=== PATIENT | male | born 1995 | race American Indian/Alaskan Native ===

== ENCOUNTER 2020-11-21 14:52 | Emergency (ER) | payer SELFPAY ==
[2020-11-21] MEDS ORDERED: DIPHtheria,PERTUSSIS(ACELL),TETANUS VACCINE/PF 0.5 ML VIAL IM ONE (15:08)
[2020-11-21 15:10] VITALS: BP 116/49
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
[2020-11-21] MEDS ORDERED: ACETAMINOPHEN 325 MG TAB PO ONE (17:07)
[2020-11-21] MEDS ORDERED: IBUPROFEN 800 MG TAB PO ONE (17:07)
[2020-11-21 17:55] LABS: Hematocrit 44.4 % (35.5-45.6); Hemoglobin 14.7 gm/dl (11.8-15.2); Mean Corpuscular HGB Conc 33 % (32-34); Mean Corpuscular Volume 93 fl (84-94); Platelet Count 258 K/mm3 (140-440); Red Blood Count 4.75 M/mm3 (3.65-5.03); Red Cell Distribution Width 14.4 % (13.2-15.2)
[2020-11-21 18:21] LABS: BUN/Creatinine Ratio 13; Blood Urea Nitrogen 13 mg/dL (9-20); Calcium 9.1 mg/dL (8.4-10.2); Hemolysis Index 7
[2020-11-21] MEDS ORDERED: SODIUM CHLORIDE 0.9% 1000 ML 1,000 ML IV ONE ×2 (18:41)
== END 2020-11-21 19:15 | disposition left against medical advice (07) ==
LOC: ED 14:52
DX: S89.92XA Unspecified injury of left lower leg, initial encounter (principal); R74.8 Abnormal levels of other serum enzymes; Z79.899 Other long term (current) drug therapy; Y08.89XA Assault by other specified means, initial encounter; Y93.89 Activity, other specified; Y92.89 Other specified places as the place of occurrence of the external cause; Y99.8 Other external cause status
CPT/HCPCS: 36415; 80048; 82550; 85027; 90471; 90715; 99283

== ENCOUNTER 2021-11-12 10:35 | Emergency (ER) | payer SELFPAY ==
[2021-11-12 11:08] VITALS: BP 109/41
[2021-11-12] MEDS ORDERED: TETANUS,DIPH,PERTUSS(ACELL) VACCINE 0.5 ML SYRINGE IM ONE (12:06)
--- NOTE | 2021-11-12 12:06 | Emergency Department Report ---
ED Extremity Problem HPI - General Chief complaint: Laceration/Recheck/Suture Stated complaint: LAC ON FINGER Time Seen by Provider: 11/12/21 11:50 Source: patient Mode of arrival: Ambulatory Limitations: No Limitations - History of Present Illness Initial comments: 26-year-old male presents to the ER today requesting a tetanus shot. Patient reports that he accidentally injured his second and third fingers of his left hand around October 13. He states that he was at work. He lifted a trash bag up in the air and accidentally got stuck by a piece of metal. He reports that he suffered a laceration to both the fingers, but he did not seek medical a ttention at the time. He states that he noticed that he has been having some stiffness to the fingers especially with flexion and extension. He states that his grandma told him that he may need a tetanus shot and he is he is not up-to-date on his tetanus. He reports no swelling, erythema, bruising, or any neuro symptoms. MD Complaint: other (Hand injury in Sep 2021; requesting tetanus injection) -: week(s) - Related Data Previous Rx's Medication Instructions Recorded Last Taken Type Naproxen 500 mg PO BID PRN #14 tablet 11/21/20 Unknown Rx Allergies Allergy/AdvReac Type Severity Reaction Status Date / Time No Known Allergies Allergy Unverified 11/21/20 15:06 ED Review of Systems ROS: Stated complaint: LAC ON FINGER Other details as noted in HPI Comment: All other systems reviewed and negative Constitutional: denies: chills, fever Eyes: denies: eye pain, eye discharge, vision change ENT: denies: ear pain, throat pain Respiratory: denies: cough, shortness of breath, wheezing Cardiovascular: denies: chest pain, palpitations Gastrointestinal: denies: abdominal pain, nausea, diarrhea Genitourinary: denies: urgency, dysuria Musculoskeletal: arthralgia Skin: other (laceration ) Neurological: denies: headache, weakness, paresthesias Psychiatric: denies: anxiety, depression Hematological/Lymphatic: denies: easy bleeding, easy bruising ED Past Medical Hx - Social History Smoking Status: Never Smoker Substance Use Type: None - Medications Home Medications: Home Medications Medication Instructions Recorded Confirmed Last Taken Type Naproxen 500 mg PO BID PRN #14 tablet 11/21/20 Unknown Rx ED Physical Exam - General Limitations: No Limitations General appearance: alert, in no apparent distress - Head Head exam: Present: atraumatic, normocephalic, normal inspection - Eye Eye exam: Present: normal appearance, PERRL, EOMI Pupils: Present: normal accommodation - Neck Neck exam: Present: normal inspection, full ROM. Absent: meningismus - Respiratory Respiratory exam: Present: normal lung sounds bilaterally. Absent: respiratory distress, wheezes, rales, rhonchi - Cardiovascular Cardiovascular Exam: Present: regular rate, normal rhythm, normal heart sounds - GI/Abdominal GI/Abdominal exam: Present: soft. Absent: distended, tenderness, guarding, rebound - Expanded Upper Extremity Exam Left Hand Wrist exam: Present: other (no apparent scaring or injury to left index finger; there is no ttp; he has full rom of finger; no signs of infection; sensation intact; cap refill nl. ) Hand L/R Back: 1 - old healed lac noted; no signs of infection; no ttp; no swelling; he has full ROM finger. cap refill nl. sensation intact Vascular: Present: normal capillary refill, radial pulse (normal ). Absent: vascular compromise - Neurological Exam Neurological exam: Present: alert, oriented X3, CN II-XII intact - Psychiatric Psychiatric exam: Present: normal affect, normal mood - Skin Skin exam: Present: intact ED Course Vital Signs 11/12/21 11:06 Temperature 98.4 F Pulse Rate 60 Respiratory 16 Rate Blood Pressure 109/41 [Left] O2 Sat by Pulse 100 Oximetry Critical care attestation.: If time is entered above; I have spent that time in minutes in the direct care of this critically ill patient, excluding procedure time. ED Disposition Clinical Impression: Laceration of finger, Tetanus toxoid vaccination administered at current visit Disposition: HOME / SELF CARE / HOMELESS Is pt being admited?: No Does the pt Need Aspirin: No Condition: Stable Instructions: Diphtheria/Tetanus Toxoids; Pertussis Vaccine, DTP injection, Nonsutured Laceration Care Additional Instructions: I recommend that you follow-up with Ortho hand specialist for further evaluation if he continues to have stiffness in the finger, to rule out tendon injury. You can continue taking ibuprofen for pain. Your tetanus was updated today. Return to the ER if your symptoms changes or worsens in any way. Referrals: JAMIE SANDERS MD [Staff Physician] - 3-5 Days Time of Disposition: 12:16
== END 2021-11-12 13:14 | disposition home or self-care (01) ==
LOC: ED 10:35
DX: S61.211D Laceration without foreign body of left index finger without damage to nail, subsequent encounter (principal); S61.213D Laceration without foreign body of left middle finger without damage to nail, subsequent encounter; X58.XXXD Exposure to other specified factors, subsequent encounter; Z23 Encounter for immunization
CPT/HCPCS: 90471; 90715; 99282

== ENCOUNTER 2022-01-18 01:30 | Emergency (ER) | payer SELFPAY ==
[2022-01-18 01:49] VITALS: BP 115/58
== END 2022-01-18 04:40 | disposition left against medical advice (07) ==
LOC: ED 01:30
DX: M25.442 Effusion, left hand (principal); Z53.21 Procedure and treatment not carried out due to patient leaving prior to being seen by health care provider